=== PATIENT | male | born 1990 | race Caucasian/White ===

== ENCOUNTER 2018-05-07 14:00 | Emergency (ER) | payer OTHER ==
[~2018-05-07] VITALS: Ht 175.3 cm; Wt 102.3 kg
[2018-05-07 15:08] LABS: ALANINE AMINOTRANSFERASE 91 U/L (12-78); ALBUMIN 3.4 G/DL (3.4-5.0); ALBUMIN/GLOBULIN RATIO 0.8 (1.1-1.5); ALKALINE PHOSPHATASE 88 IU/L (46-116); ANION GAP 12 (8-16); ASPARTATE AMINO TRANSFERASE 114 U/L (10-37); BILIRUBIN,TOTAL 1.2 MG/DL (0.1-1.0); BLOOD UREA NITROGEN 10 MG/DL (7-18); BUN/CREATININE RATIO 10.8 (5.4-32.0); CALCIUM 9.5 MG/DL (8.5-10.1); CHLORIDE 95 MMOL/L (99-107); CREATININE 0.93 MG/DL (0.60-1.10); GLUCOSE 120 MG/DL (70-104); POTASSIUM 3.5 MMOL/L (3.5-5.1); SODIUM 134 MMOL/L (135-145); TOTAL CARBON DIOXIDE 27.3 MMOL/L (24-32); TOTAL PROTEIN 7.5 G/DL (6.4-8.2); eGFR > 90 ML/MIN
[2018-05-07 15:32] LABS: BASOPHILS % (AUTO) 0.1 % (0-1); EOSINOPHILS % (AUTO) 0 % (0-6); HEMATOCRIT 42.5 % (42.0-52.0); LYMPHOCYTES # (AUTO) 2.7 X10'3 (1.1-4.8); LYMPHOCYTES % (AUTO) 24.8 % (21-51); MEAN CORPUSCULAR HEMOGLOBIN 33.5 PG (27.0-31.0); MEAN CORPUSCULAR HGB CONC 35.2 g/dL (33.0-36.5); MEAN PLATELET VOLUME 7.5 FL (7.4-10.4); MONOCYTES # (AUTO) 0.9 X10'3 (0-0.9); MONOCYTES % (AUTO) 7.8 % (2-12); NEUTROPHILS # (AUTO) 7.4 X10'3 (1.8-7.7); NEUTROPHILS % (AUTO) 67.3 % (42-75); PLATELET COUNT 138 X10'3 (140-440); RED BLOOD COUNT 4.47 X10'6 (4.70-6.10); RED CELL DISTRIBUTION WIDTH 13.7 % (11.5-14.5)
[2018-05-07 16:34] LABS: ETHANOL < 0.010 GM/DL (0.0-0.010)
[2018-05-07] MEDS ORDERED: LORazepam 1 MG tablet PO ONE (17:20)
[2018-05-07] MEDS ORDERED: HYDR-4383 PO (19:14)
[2018-05-07 19:55] VITALS: BP 121/68
== END 2018-05-07 19:57 | disposition home or self-care (01) ==
LOC: ER 14:01
DX: S42.292A Other displaced fracture of upper end of left humerus, initial encounter for closed fracture (principal); F10.10 Alcohol abuse, uncomplicated; I10 Essential (primary) hypertension; F12.90 Cannabis use, unspecified, uncomplicated; F17.210 Nicotine dependence, cigarettes, uncomplicated; W19.XXXA Unspecified fall, initial encounter; Y93.89 Activity, other specified; Y92.89 Other specified places as the place of occurrence of the external cause; Y99.9 Unspecified external cause status; Y90.9 Presence of alcohol in blood, level not specified
CPT/HCPCS: 36415; 73030; 73200; 80053; 80320; 85025; 93005; 99284

== ENCOUNTER 2018-05-29 05:55 | Day surgery (SDC) | payer MEDICAID ==
[2018-05-28 14:12] LABS: BASOPHILS % (AUTO) 0.3 % (0-1); EOSINOPHILS # (AUTO) 0.1 X10'3 (0-0.9); EOSINOPHILS % (AUTO) 1.3 % (0-6); LYMPHOCYTES # (AUTO) 2.5 X10'3 (1.1-4.8); LYMPHOCYTES % (AUTO) 45.5 % (21-51); MEAN CORPUSCULAR HEMOGLOBIN 32.8 PG (27.0-31.0); MEAN CORPUSCULAR HGB CONC 34.9 g/dL (33.0-36.5); MEAN CORPUSCULAR VOLUME 93.9 FL (78-98); MEAN PLATELET VOLUME 7.7 FL (7.4-10.4); MONOCYTES # (AUTO) 0.4 X10'3 (0-0.9); MONOCYTES % (AUTO) 7.8 % (2-12); NEUTROPHILS # (AUTO) 2.5 X10'3 (1.8-7.7); NEUTROPHILS % (AUTO) 45.1 % (42-75); PRE OP HEMATOCRIT 48.4 % (42.0-52.0); PRE OP HEMOGLOBIN 16.9 g/dL (14.0-17.9); PRE OP PLATELET COUNT 308 X10'3 (140-440); RED BLOOD COUNT 5.16 X10'6 (4.70-6.10); RED CELL DISTRIBUTION WIDTH 13.7 % (11.5-14.5)
[2018-05-28 14:18] LABS: ALBUMIN 3.8 G/DL (3.4-5.0); ALKALINE PHOSPHATASE 97 IU/L (46-116); BLOOD UREA NITROGEN 13 MG/DL (7-18); BUN/CREATININE RATIO 15.1 (5.4-32.0); CALCIUM 10.2 MG/DL (8.5-10.1); CHLORIDE 102 MMOL/L (99-107); CREATININE 0.86 MG/DL (0.60-1.10); PRE OP ALT 68 U/L (30-65); PRE OP ANION GAP 7 (8-16); PRE OP AST 25 U/L (10-37); PRE OP BILIRUB, TOTAL 0.5 MG/DL (0.0-1.0); PRE OP GLUCOSE 107 MG/DL (70-104); PRE OP POTASSIUM 3.8 MMOL/L (3.4-5.1); PRE OP SODIUM 140 MMOL/L (135-145); TOTAL CARBON DIOXIDE 31.3 MMOL/L (24-32); TOTAL PROTEIN 7.6 G/DL (6.4-8.2); eGFR > 90 ML/MIN
[2018-05-29] VITALS (13 sets, daily range): BP systolic 113–136; BP diastolic 61–93
[~2018-05-29] VITALS: Ht 177.8 cm; Wt 104.3 kg
[~2018-05-29 05:55] MED LIST: DOCUMENT DATE & TIME OF BETA-BLOCKER PO ONE; HYDR-4353 PO; METO-384 PO; MV-M1CAP15; [UNRECOGNIZED DRUG - OTHER]; ceFAZolin 2gm in dextrose, iso 100 ML IV ONE; famotidine 20mg tablet PO ONE; ringers solution, lacted 1,000 ML IV SCH
[2018-05-29] MEDS ORDERED: vancomycin 1,000mg inj ONE (06:31)
[2018-05-29] MEDS ORDERED: ketorolac trometh. 30mg/ml inj. ONE ×2 (06:42→11:50)
[2018-05-29] MEDS ORDERED: ROPIVAcaine 0.5% (5mg/ml) 30ml vial ONE ×2 (06:42→08:47)
[2018-05-29] MEDS ORDERED: cloNIDine hcl/PF 100mcg/ml inj ONE (08:47)
[2018-05-29] MEDS ORDERED: fentaNYL/PF 50MCG/1 ML 2ML syringe ONE ×2 (08:52→11:41)
[2018-05-29] MEDS ORDERED: propofol inj 20 ML IV ONE ×2 (08:52→10:50)
[2018-05-29] MEDS ORDERED: MIDAZolam 5mg/5ml vial ONE (08:52)
[2018-05-29] MEDS ORDERED: dexamethasone sod phosphate 4mg/ml inj. ONE (08:53)
[2018-05-29] MEDS ORDERED: ondansetron/PF 4mg/2ml inj ONE (08:53)
[2018-05-29] MEDS ORDERED: LIDOcaine 2% (20mg/ml) 5ml vial ONE (08:53)
[2018-05-29] MEDS ORDERED: ROPIVAcaine 0.2%/PF PAIN PUMP 500 ML IJ SCH (09:18)
[2018-05-29] MEDS ORDERED: ringers solution, lacted 1,000 ML IV SCH (09:19)
[2018-05-29] MEDS ORDERED: morphine 4 MG/ML inj SYRINge IV PRN ×2 (09:20)
[2018-05-29] MEDS ORDERED: ondansetron/PF 4mg/2ml inj IV PRN (09:20)
[2018-05-29] MEDS ORDERED: fentaNYL/PF 50MCG/1 ML 2ML syringe IV PRN ×2 (09:20)
[2018-05-29] MEDS ORDERED: hydrALAZINE 20mg/ml inj. IV PRN (09:20)
[2018-05-29] MEDS ORDERED: labetalol 20mg/4ml (5mg/ml) syringe IV PRN (09:20)
[2018-05-29] MEDS ORDERED: sevoflurane 250ml liquid IH ONE (09:21)
[2018-05-29] MEDS ORDERED: labetalol 20mg/4ml (5mg/ml) syringe IV ONE (10:48)
--- NOTE | 2018-05-29 12:13 | NUR ---
Received from OR via [facility], accompanied by Anesthesiologist DR DECKER and report given by Anesthesiologist. PT DROWSY, LEFT SHOULDER W/DRSG, SHOULDER WRAP, SLING, ICE PACK, INTERSCALENE CATHETER, CDI. FINGERS PWD. Addendum: 05/29/18 at 1251 by Olivia Miller RN Amended: Links added.
[2018-05-29] MEDS ORDERED: HYDROcodone/acetaminophen 10/325mg tab PO PRN (12:15)
--- NOTE | 2018-05-29 14:03 | NUR ---
PT D/C TO HOME VIA PRIVATE VEHICLE W/HIS FATHER, DETAILED DISCHARGE INSTRUCTIONS GONE OVER AND GIVEN TO PT TO TAKE HOME, ON-Q PAIN PUMP INSTRUCTIONS WELL W/DETAILED INFORMATION AND DEMONSTRATION, PT VERBALIZES UNDERSTANDING OF INSTRUCTIONS AND KNOWLEDGE TO CALL MD OFFICE OR 24 HOUR ON-Q PUMP HOTLINE FOR ANY QUESTIONS/CONCERNS. Addendum: 05/29/18 at 1434 by Olivia Miller RN Amended: Links added.
== END 2018-05-29 14:03 | disposition home or self-care (01) ==
LOC: PAS 05:55
PROVIDERS: ATTEND Orthopaedic Surgery
DX: S42.292A Other displaced fracture of upper end of left humerus, initial encounter for closed fracture (principal); I10 Essential (primary) hypertension; F17.210 Nicotine dependence, cigarettes, uncomplicated; F41.8 Other specified anxiety disorders; X58.XXXA Exposure to other specified factors, initial encounter; Y93.89 Activity, other specified; Y92.89 Other specified places as the place of occurrence of the external cause; Y99.8 Other external cause status; Z72.89 Other problems related to lifestyle
CPT/HCPCS: 23615; 36415; 73020; 76000; 80053; 82948; 85025; 85610; 85730; 93005; A6449; C1713; J0690; J0735; J1100; J1885; J2001; J2250; J2405; J2704; J2795; J3010; J3370; J7120; A4565; A7000; J3490; J7030

== ENCOUNTER 2018-06-23 22:01 | Emergency (ER) | payer MEDICAID ==
[~2018-06-23] VITALS: Ht 175.3 cm; Wt 100.0 kg
[~2018-06-23 22:01] MED LIST changes: -DOCUMENT DATE & TIME OF BETA-BLOCKER PO ONE; -ceFAZolin 2gm in dextrose, iso 100 ML IV ONE; -famotidine 20mg tablet PO ONE; -ringers solution, lacted 1,000 ML IV SCH
--- NOTE | 2018-06-23 22:05 | NUR ---
dr gillette at bedside. pt given 6 mg with no changes per ems.
[2018-06-23] MEDS ORDERED: magnesium 2GM in 50ml NS 50 ML IV ONE (22:15)
[2018-06-23] MEDS ORDERED: normal saline 1000ML IV soln IVB ONE (22:15)
--- NOTE | 2018-06-23 22:38 | NUR ---
parents at bedside
[2018-06-23 22:39] LABS: BASOPHILS % (AUTO) 0.2 % (0-1); EOSINOPHILS % (AUTO) 0 % (0-6); HEMATOCRIT 46.6 % (42.0-52.0); HEMOGLOBIN 16.5 g/dl (14.0-17.9); LYMPHOCYTES # (AUTO) 4.1 X10'3 (1.1-4.8); LYMPHOCYTES % (AUTO) 39.6 % (21-51); MEAN CORPUSCULAR HGB CONC 35.3 g/dL (33.0-36.5); MEAN CORPUSCULAR VOLUME 90.7 FL (78-98); MEAN PLATELET VOLUME 7.6 FL (7.4-10.4); MONOCYTES # (AUTO) 0.7 X10'3 (0-0.9); NEUTROPHILS # (AUTO) 5.5 X10'3 (1.8-7.7); NEUTROPHILS % (AUTO) 53.2 % (42-75); PLATELET COUNT 184 X10'3 (140-440); RED BLOOD COUNT 5.14 X10'6 (4.70-6.10); WHITE BLOOD COUNT 10.3 X10'3 (4.5-11.0)
[2018-06-23 22:54] LABS: ALANINE AMINOTRANSFERASE 33 U/L (12-78); ALBUMIN 3.5 G/DL (3.4-5.0); ALBUMIN/GLOBULIN RATIO 0.9 (1.1-1.5); ALKALINE PHOSPHATASE 111 IU/L (46-116); ANION GAP 23 (8-16); ASPARTATE AMINO TRANSFERASE 35 U/L (10-37); BILIRUBIN,TOTAL 0.9 MG/DL (0.1-1.0); BLOOD UREA NITROGEN 8 MG/DL (7-18); BUN/CREATININE RATIO 6.3 (5.4-32.0); CALCIUM 8.9 MG/DL (8.5-10.1); CHLORIDE 87 MMOL/L (99-107); CREATININE 1.27 MG/DL (0.60-1.10); ETHANOL 0.192 GM/DL (0.0-0.010); GLUCOSE 159 MG/DL (70-104); MAGNESIUM 1.2 MG/DL (1.5-2.4); PHOSPHORUS 1.9 MG/DL (2.3-4.5); SODIUM 137 MMOL/L (135-145); TOTAL CARBON DIOXIDE 27.2 MMOL/L (24-32); TOTAL PROTEIN 7.2 G/DL (6.4-8.2); eGFR 68 ML/MIN
[2018-06-23] MEDS ORDERED: metoprolol tartrate 1mg/ml inj IV ONE (22:55)
[2018-06-23 22:58] LABS: POTASSIUM 2.5 MMOL/L (3.5-5.1)
[2018-06-23] MEDS ORDERED: potassium Cl 20 mEq SR tablet PO ONE (23:00)
[2018-06-23] MEDS: potassium 10mEq/100ml NS w/LIDOcaine (10mg/bag) IV SCH (23:37)
[2018-06-24 00:14] LABS: URINE AMPHETAMINE SCREEN NEGATIVE (Neg); URINE BARBITUATE SCREEN NEGATIVE (Neg); URINE BENZODIAZEPINES SCREEN NEGATIVE (Neg); URINE CANNABINOID SCREEN POSITIVE (Neg); URINE COCAINE SCREEN NEGATIVE (Neg); URINE METHADONE SCREEN NEGATIVE (Neg); URINE OPIATE SCREEN NEGATIVE (Neg); URINE PHENCYCLIDINE SCREEN NEGATIVE (Neg)
[2018-06-24] MEDS: potassium 10mEq/100ml NS w/LIDOcaine (10mg/bag) IV SCH (00:44)
--- NOTE | 2018-06-24 01:02 | NUR ---
DR. HERBERT UPDATED OF PT'S CP OVER THE PAST HOUR. TO ORDER ADTL MEDS AND CHRISTAL STAT NOW. ANTICIPATES ONCE HR BACK TO NORMAL , TO DC PATIENT. PATIENT UPDATED.
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
[2018-06-24] MEDS ORDERED: HYDROcodone/acetaminophen 10/325mg tab PO ONE (01:50)
[2018-06-24] MEDS ORDERED: metoprolol succinate 25mg (24-HOUR) SR. Tablet PO SCH ×3 (02:05→08:00)
--- NOTE | 2018-06-24 02:11 | NUR ---
given norco and metoprolol xl. up to br with slow steady gait.
[2018-06-24 02:16] LABS: D-DIMER 0.55 MG/L FEU (0-0.50)
--- NOTE | 2018-06-24 02:48 | NUR ---
verbal received by dr. gillette for tums , per pt request
[2018-06-24] MEDS ORDERED: calcium carbonate 500mg chew tablet PO PRN (02:50)
--- NOTE | 2018-06-24 03:20 | NUR ---
Pt updated that MD has ordered a CTA. Pt asking if it is really necessary and reports that he is feeling better, hr 106. dr. gilletet updated and reports he will be comfortable discharging the pt if he does not want the work up. pt reports wanting to be discharged.
[2018-06-24] MEDS ORDERED: iohexol 350MG/ML 100ml bottle IV ONE (03:24)
[2018-06-24 04:07] VITALS: BP 144/78
[2018-06-24] MEDS ORDERED: CHLO1CAP PO (19:54)
[2018-06-24] MEDS ORDERED: POTA20TA10 PO (19:54)
== END 2018-06-24 10:41 | disposition left against medical advice (07) ==
LOC: ER 22:01
DX: I47.1 Supraventricular tachycardia (principal); I10 Essential (primary) hypertension; F12.90 Cannabis use, unspecified, uncomplicated; Z98.890 Other specified postprocedural states; Z79.899 Other long term (current) drug therapy
CPT/HCPCS: 36415; 71045; 80053; 80305; 80320; 83735; 84100; 84443; 84484; 85025; 85379; 96365; 96375; 99284; J3475; J3480; J7030; Q9967; 93005; J3490

== ENCOUNTER 2018-06-24 15:04 | Emergency (ER) | payer MEDICAID ==
[~2018-06-24] VITALS: Ht 175.3 cm; Wt 101.0 kg
--- NOTE | 2018-06-24 15:34 | NUR ---
called pt to do ekg, pt not in lobby
[2018-06-24] MEDS ORDERED: normal saline 1000ml 1,000 ML IV ONE (17:15)
[2018-06-24] MEDS ORDERED: LORazepam 2 mg/ml vial IV ONE (17:15)
[2018-06-24] MEDS ORDERED: ondansetron/PF 4mg/2ml inj IV ONE (17:15)
[2018-06-24 17:38] LABS: BASOPHILS % (AUTO) 0.1 % (0-1); EOSINOPHILS % (AUTO) 0 % (0-6); HEMATOCRIT 44.1 % (42.0-52.0); HEMOGLOBIN 15.8 g/dl (14.0-17.9); LYMPHOCYTES # (AUTO) 1.1 X10'3 (1.1-4.8); LYMPHOCYTES % (AUTO) 15.6 % (21-51); MEAN CORPUSCULAR HEMOGLOBIN 32.1 PG (27.0-31.0); MEAN CORPUSCULAR HGB CONC 35.9 g/dL (33.0-36.5); MEAN CORPUSCULAR VOLUME 89.6 FL (78-98); MEAN PLATELET VOLUME 7.6 FL (7.4-10.4); MONOCYTES # (AUTO) 0.5 X10'3 (0-0.9); MONOCYTES % (AUTO) 7.1 % (2-12); NEUTROPHILS # (AUTO) 5.6 X10'3 (1.8-7.7); NEUTROPHILS % (AUTO) 77.2 % (42-75); PLATELET COUNT 128 X10'3 (140-440); RED BLOOD COUNT 4.93 X10'6 (4.70-6.10); RED CELL DISTRIBUTION WIDTH 13.2 % (11.5-14.5); WHITE BLOOD COUNT 7.3 X10'3 (4.5-11.0)
[2018-06-24] MEDS ORDERED: mag hydrox/Alum hydrox/simeth 30ml oral suspension PO ONE (17:40)
[2018-06-24] MEDS ORDERED: LIDOcaine Viscous 15ml cup MM PRN (17:40)
[2018-06-24 17:47] LABS: ALANINE AMINOTRANSFERASE 38 U/L (12-78); ALBUMIN 3.4 G/DL (3.4-5.0); ALKALINE PHOSPHATASE 102 IU/L (46-116); ANION GAP 11 (8-16); ASPARTATE AMINO TRANSFERASE 46 U/L (10-37); BILIRUBIN,TOTAL 1.3 MG/DL (0.1-1.0); BLOOD UREA NITROGEN 6 MG/DL (7-18); BUN/CREATININE RATIO 7.7 (5.4-32.0); CALCIUM 9.9 MG/DL (8.5-10.1); CHLORIDE 88 MMOL/L (99-107); CREATININE 0.78 MG/DL (0.60-1.10); GLUCOSE 138 MG/DL (70-104); SODIUM 130 MMOL/L (135-145); TOTAL CARBON DIOXIDE 31.5 MMOL/L (24-32); TOTAL PROTEIN 6.9 G/DL (6.4-8.2); eGFR > 90 ML/MIN
[2018-06-24 17:50] LABS: POTASSIUM 2.4 MMOL/L (3.5-5.1)
[2018-06-24] MEDS ORDERED: potassium Cl 20 mEq SR tablet PO ONE (17:52)
[2018-06-24] MEDS: potassium 10mEq/100ml NS w/LIDOcaine (10mg/bag) IV SCH ×2 (18:11→19:37)
[2018-06-24 19:42] VITALS: BP 119/47
[2018-06-24] MEDS ORDERED: CHLO1CAP PO (19:54)
[2018-06-24] MEDS ORDERED: POTA20TA10 PO (19:54)
[2018-06-24] MEDS ORDERED: chlordiazePOXIDE 25mg capsule PO ONE (19:55)
== END 2018-06-24 21:14 | disposition home or self-care (01) ==
LOC: ER 15:04
DX: F10.10 Alcohol abuse, uncomplicated (principal); E87.6 Hypokalemia; R00.0 Tachycardia, unspecified; I10 Essential (primary) hypertension; F12.90 Cannabis use, unspecified, uncomplicated; Z98.890 Other specified postprocedural states; Z79.899 Other long term (current) drug therapy; Y90.9 Presence of alcohol in blood, level not specified
CPT/HCPCS: 36415; 80053; 85025; 93005; 96365; 96375; 99284; J2060; J2405; J3480; J7030

== ENCOUNTER 2019-01-26 22:00 | Emergency (ER) | payer MEDICAID ==
[~2019-01-26] VITALS: Ht 180.3 cm; Wt 100.0 kg
[~2019-01-26 22:00] MED LIST changes: +CHLO1CAP PO; +POTA20TA10 PO
[2019-01-26] MEDS ORDERED: NALT50TA PO (22:13)
[2019-01-26] MEDS ORDERED: CARB300C9 PO (22:13)
--- NOTE | 2019-01-26 22:21 | NUR ---
cxr being done.
[2019-01-26] MEDS ORDERED: normal saline 1000ML IV soln IVB ONE (22:25)
[2019-01-26] MEDS ORDERED: phenobarbital inj 260 MG in normal saline 100ml IV soln 99 ML IV ONE ×2 (22:25→22:35)
[2019-01-26] MEDS ORDERED: magnesium oxide 400mg tablet PO ONE (22:25)
[2019-01-26] MEDS ORDERED: thiamine 100mg tablet PO ONE (22:25)
[2019-01-26 22:31] LABS: BASOPHILS % (AUTO) 0.3 % (0-1); EOSINOPHILS % (AUTO) 0 % (0-6); HEMATOCRIT 46.8 % (42.0-52.0); HEMOGLOBIN 16.7 g/dl (14.0-17.9); LYMPHOCYTES # (AUTO) 4.5 X10'3 (1.1-4.8); LYMPHOCYTES % (AUTO) 38.9 % (21-51); MEAN CORPUSCULAR HEMOGLOBIN 32.6 PG (27.0-31.0); MEAN CORPUSCULAR HGB CONC 35.7 g/dL (33.0-36.5); MEAN CORPUSCULAR VOLUME 91.4 FL (78-98); MEAN PLATELET VOLUME 7.1 FL (7.4-10.4); MONOCYTES # (AUTO) 0.5 X10'3 (0-0.9); MONOCYTES % (AUTO) 4.4 % (2-12); NEUTROPHILS # (AUTO) 6.5 X10'3 (1.8-7.7); NEUTROPHILS % (AUTO) 56.4 % (42-75); PLATELET COUNT 159 X10'3 (140-440); RED BLOOD COUNT 5.11 X10'6 (4.70-6.10); WHITE BLOOD COUNT 11.5 X10'3 (4.5-11.0)
[2019-01-26] MEDS ORDERED: ondansetron/PF 4mg/2ml inj IV ONE (22:35)
[2019-01-26 22:49] LABS: D-DIMER < 0.19 MG/L FEU (0-0.50)
[2019-01-26 22:56] LABS: ALANINE AMINOTRANSFERASE 32 U/L (12-78); ALBUMIN 4.1 G/DL (3.4-5.0); ALBUMIN/GLOBULIN RATIO 1.2 (1.1-1.5); ALKALINE PHOSPHATASE 105 IU/L (46-116); ANION GAP 17 (8-16); ASPARTATE AMINO TRANSFERASE 51 U/L (10-37); BLOOD UREA NITROGEN 8 MG/DL (7-18); BUN/CREATININE RATIO 8.6 (5.4-32.0); CALCIUM 8.9 MG/DL (8.5-10.1); CHLORIDE 94 MMOL/L (99-107); CREATININE 0.93 MG/DL (0.60-1.10); ETHANOL 0.027 GM/DL (0.0-0.010); GLUCOSE 122 MG/DL (70-104); SODIUM 135 MMOL/L (135-145); TOTAL CARBON DIOXIDE 24.2 MMOL/L (24-32); TOTAL PROTEIN 7.4 G/DL (6.4-8.2); eGFR > 90 ML/MIN
[2019-01-26 22:58] LABS: MAGNESIUM 0.9 MG/DL (1.5-2.4); POTASSIUM 2.9 MMOL/L (3.5-5.1)
[2019-01-26] MEDS ORDERED: potassium Cl 20 mEq SR tablet PO ONE (23:00)
[2019-01-26] MEDS: magnesium 2GM in 50ml NS 50 ML IV SCH ×2 (23:19→23:46)
[2019-01-26 23:22] LABS: URINE AMPHETAMINE SCREEN NEGATIVE (Neg); URINE BARBITUATE SCREEN NEGATIVE (Neg); URINE BENZODIAZEPINES SCREEN NEGATIVE (Neg); URINE CANNABINOID SCREEN POSITIVE (Neg); URINE COCAINE SCREEN NEGATIVE (Neg); URINE METHADONE SCREEN NEGATIVE (Neg); URINE OPIATE SCREEN NEGATIVE (Neg); URINE PHENCYCLIDINE SCREEN NEGATIVE (Neg)
[2019-01-27] MEDS ORDERED: phenobarbital inj 130 MG in normal saline 100ml IV soln 99 ML IV ONE ×2 (00:10→00:55)
--- NOTE | 2019-01-27 01:33 | NUR ---
PT UP TO THE BR TO VOID. HE SAID THAT HE IS FEELING A LITTLE BIT BETTER. GAVE HIM SOME ICE CHIPS. BACK TO BED WITH SEIZURE PADS/BLANKET. BACK ON THE MONITOR. HIS SISTER IS STILL AT BS.
[2019-01-27 01:45] VITALS: BP 162/96
[2019-01-27] MEDS ORDERED: POTA20TA19 PO (02:04)
== END 2019-01-27 02:21 | disposition home or self-care (01) ==
LOC: ER 22:01
DX: F10.229 Alcohol dependence with intoxication, unspecified (principal); E87.6 Hypokalemia; E83.42 Hypomagnesemia; I10 Essential (primary) hypertension; F12.90 Cannabis use, unspecified, uncomplicated; Z79.899 Other long term (current) drug therapy; Y90.0 Blood alcohol level of less than 20 mg/100 ml
CPT/HCPCS: 36415; 71045; 80053; 80305; 80320; 83735; 84439; 84443; 84484; 85025; 85379; 93005; 96365; 96366; 96367; 96375; 99284; J2405; J2560; J3475; J7030

== ENCOUNTER 2019-02-12 12:15 | Day surgery (SDC) | payer MEDICAID ==
[2019-02-11 10:05] LABS: BASOPHILS % (AUTO) 0.6 % (0-1); EOSINOPHILS % (AUTO) 0.6 % (0-6); LYMPHOCYTES # (AUTO) 3.4 X10'3 (1.1-4.8); MEAN CORPUSCULAR HEMOGLOBIN 32.1 PG (27.0-31.0); MEAN CORPUSCULAR VOLUME 94.5 FL (78-98); MONOCYTES # (AUTO) 0.4 X10'3 (0-0.9); NEUTROPHILS # (AUTO) 2.9 X10'3 (1.8-7.7); NEUTROPHILS % (AUTO) 42.8 % (42-75); PRE OP HEMATOCRIT 49.3 % (42.0-52.0); PRE OP HEMOGLOBIN 16.8 g/dL (14.0-17.9); PRE OP PLATELET COUNT 394 X10'3 (140-440); RED BLOOD COUNT 5.22 X10'6 (4.70-6.10); RED CELL DISTRIBUTION WIDTH 13.2 % (11.5-14.5)
[2019-02-11 10:18] LABS: PRE OP PROTIME 10.5 SECONDS (9.0-12.0)
[2019-02-11 10:31] LABS: ALBUMIN 3.8 G/DL (3.4-5.0); ALBUMIN/GLOBULIN RATIO 1.1 (1.1-1.5); ALKALINE PHOSPHATASE 89 IU/L (46-116); BLOOD UREA NITROGEN 17 MG/DL (7-18); BUN/CREATININE RATIO 15.9 (5.4-32.0); CALCIUM 9.3 MG/DL (8.5-10.1); CHLORIDE 103 MMOL/L (99-107); CREATININE 1.07 MG/DL (0.60-1.10); PRE OP ALT 67 U/L (30-65); PRE OP ANION GAP 4 (8-16); PRE OP AST 42 U/L (10-37); PRE OP BILIRUB, TOTAL 0.2 MG/DL (0.0-1.0); PRE OP GLUCOSE 94 MG/DL (70-104); PRE OP SODIUM 138 MMOL/L (135-145); TOTAL CARBON DIOXIDE 30.6 MMOL/L (24-32); TOTAL PROTEIN 7.3 G/DL (6.4-8.2); eGFR 82 ML/MIN
[2019-02-11 10:40] LABS: PRE OP POTASSIUM 4.4 MMOL/L (3.4-5.1)
[2019-02-12] VITALS (8 sets, daily range): BP systolic 128–152; BP diastolic 76–92
[~2019-02-12] VITALS: Ht 177.8 cm; Wt 104.2 kg
[~2019-02-12 12:15] MED LIST changes: +CARB200T40 PO; -CHLO1CAP PO; +DOCUMENT DATE & TIME OF BETA-BLOCKER PO ONE; -HYDR-4353 PO; -MV-M1CAP15; +NALT50TA PO; -POTA20TA10 PO; -[UNRECOGNIZED DRUG - OTHER]; +albuterol 2.5 MG/3 ML nebule NEB ONE; +cefazolin/dext.iso 2gm/100ml 100 ML IV ONE; +famotidine 20mg tablet PO ONE; +ringers solution, lacted 1,000 ML IV SCH; +vancomycin inj 1,500 MG in normal saline 300ml IV soln IV ONE
[2019-02-12] MEDS ORDERED: ringers solution, lacted 1,000 ML IV SCH ×2 (13:49→15:59)
[2019-02-12] MEDS ORDERED: proCHLORperazine 10 MG/2 ml inj IV PRN ×2 (13:50→16:00)
[2019-02-12] MEDS ORDERED: morphine 4 MG/ML inj SYRINge IV PRN ×4 (13:50→16:00)
[2019-02-12] MEDS ORDERED: meperidine/PF 25mg/ml syringe IV PRN ×6 (13:50→16:00)
[2019-02-12] MEDS ORDERED: ondansetron/PF 4mg/2ml inj IV PRN ×2 (13:50→16:00)
[2019-02-12] MEDS ORDERED: sevoflurane 250ml liquid IH ONE (14:30)
[2019-02-12] MEDS ORDERED: fentaNYL/PF 50MCG/1 ML 2ML syringe ONE (14:43)
[2019-02-12] MEDS ORDERED: MIDAZolam 5mg/5ml vial ONE (14:44)
[2019-02-12] MEDS ORDERED: propofol inj 20 ML IV ONE (14:48)
[2019-02-12] MEDS ORDERED: ROPIVAcaine 0.5% (5mg/ml) 30ml vial ONE (14:48)
[2019-02-12] MEDS ORDERED: BUPIVAcaine/PF 2.5mg/ml (0.25%) 10ml vial ONE ×2 (15:56)
[2019-02-12] MEDS ORDERED: BUPIVAcaine/PF 2.5mg/ml (0.25%) 10ml vial IJ ONE (15:58)
--- NOTE | 2019-02-12 16:36 | NUR ---
Received from OR via , accompanied by Anesthesiologist DR HOANG and report given by Anesthesiolgist. AWAKENS TO VOICE. VITALS STABLE. FRESSING HAS SM RED SPOT AT THE CENTER. MURPHY PAIN. LUE IN A SIMPLE SLING.
[2019-02-12] MEDS ORDERED: HYDROcodone/acetaminophen 10/325mg tab PO PRN (16:50)
--- NOTE | 2019-02-12 17:36 | NUR ---
AWAKE AND ORIENTED. VITALS STABLE. DRESSING WITH SM DRAINAGE NOTED. MURHPY PAIN. HOME WITH HIS DAD AT THIS TIME.
== END 2019-02-12 17:36 | disposition home or self-care (01) ==
LOC: PAS 12:15 → EDSTATUS 15:15 → PAS 17:36
PROVIDERS: ATTEND Orthopaedic Surgery
DX: T84.84XA Pain due to internal orthopedic prosthetic devices, implants and grafts, initial encounter (principal); M75.42 Impingement syndrome of left shoulder; M75.52 Bursitis of left shoulder; M19.112 Post-traumatic osteoarthritis, left shoulder; I10 Essential (primary) hypertension; F17.210 Nicotine dependence, cigarettes, uncomplicated; Z72.89 Other problems related to lifestyle; E66.9 Obesity, unspecified; Z68.42 Body mass index [BMI] 45.0-49.9, adult; G89.18 Other acute postprocedural pain; F41.9 Anxiety disorder, unspecified; F32.9 Major depressive disorder, single episode, unspecified; K21.9 Gastro-esophageal reflux disease without esophagitis; Z79.01 Long term (current) use of anticoagulants; Z79.899 Other long term (current) drug therapy; Z98.890 Other specified postprocedural states; Y83.8 Other surgical procedures as the cause of abnormal reaction of the patient, or of later complication, without mention of misadventure at the time of the procedure; Y92.89 Other specified places as the place of occurrence of the external cause
CPT/HCPCS: 29819; 29823; 36415; 64415; 80053; 82948; 85025; 85610; 85730; J2250; J2704; J3010; J3370; J3490; J7120; A4565; A4618; A6449; A7000; J2795

== ENCOUNTER 2019-03-23 12:29 | Inpatient (IN) | payer MEDICAID ==
[~2019-03-23] VITALS: Ht 177.8 cm; Wt 104.5 kg
[~2019-03-23 12:29] MED LIST changes: -DOCUMENT DATE & TIME OF BETA-BLOCKER PO ONE; -albuterol 2.5 MG/3 ML nebule NEB ONE; -cefazolin/dext.iso 2gm/100ml 100 ML IV ONE; -famotidine 20mg tablet PO ONE; -ringers solution, lacted 1,000 ML IV SCH; -vancomycin inj 1,500 MG in normal saline 300ml IV soln IV ONE
[2019-03-23] MEDS ORDERED: LORazepam 1 MG tablet PO ONE (15:25)
[2019-03-23] MEDS ORDERED: normal saline 1000ML IV soln IVB ONE (15:25)
[2019-03-23] MEDS ORDERED: ondansetron/PF 4mg/2ml inj IV ONE ×2 (15:25→20:00)
[2019-03-23 16:05] LABS: MEAN CORPUSCULAR HEMOGLOBIN 28.9 PG (27.0-31.0); WHITE BLOOD COUNT 4.6 X10'3 (4.5-11.0)
[2019-03-23 16:07] LABS: HEMATOCRIT 41.7 % (42.0-52.0); MEAN CORPUSCULAR HGB CONC 33.5 g/dL (33.0-36.5); MEAN CORPUSCULAR VOLUME 86.2 FL (78-98); MEAN PLATELET VOLUME 8.3 FL (7.4-10.4); PLATELET COUNT 63 X10'3 (140-440); RED BLOOD COUNT 4.84 X10'6 (4.70-6.10); RED CELL DISTRIBUTION WIDTH 18.5 % (11.5-14.5)
[2019-03-23 16:11] LABS: PARTIAL THROMBOPLASTIN TIME 34 SECONDS (22-32)
[2019-03-23 16:14] LABS: ALANINE AMINOTRANSFERASE 125 U/L (12-78); ALKALINE PHOSPHATASE 583 IU/L (46-116); ANION GAP 13 (8-16); BILIRUBIN,TOTAL 14.4 MG/DL (0.1-1.0); BLOOD UREA NITROGEN 6 MG/DL (7-18); BUN/CREATININE RATIO 6.1 (5.4-32.0); CALCIUM 8.2 MG/DL (8.5-10.1); CHLORIDE 91 MMOL/L (99-107); CREATININE 0.98 MG/DL (0.60-1.10); ETHANOL 0.086 GM/DL (0.0-0.010); LIPASE 290 U/L (73-393); SODIUM 132 MMOL/L (135-145); eGFR 90 ML/MIN
[2019-03-23 16:37] LABS: ANISOCYTOSIS 2+; PLATELET ESTIMATE DECREASED; TOTAL CELLS COUNTED 100
[2019-03-23 16:45] LABS: CLARITY,URINE CLEAR (Clear); COLOR,URINE AMBER (Yellow); GLUCOSE, URINE 100 mg/dl (Neg); KETONES,URINE NEGATIVE (Neg); LEUKOCYTE ESTERASE ,URINE NEGATIVE (Neg); NITRITES, URINE NEGATIVE (Neg); OCCULT BLOOD,URINE NEGATIVE (Neg); PROTEIN,URINE TRACE mg/dl (Neg)
[2019-03-23 16:49] LABS: UA COLLECTION TYPE CLN CATCH MIDSTREAM
[2019-03-23 16:51] LABS: RBC,URINE NONE SEEN /HPF (0-2)
[2019-03-23 16:52] LABS: BACTERIA,URINE FEW /HPF (Neg); FINE GRANULAR CAST 0-3 /LPF (NEGATIVE); SQUAMOUS EPITHELIAL CELL,UR FEW /LPF (FEW)
[2019-03-23 16:57] LABS: ASPARTATE AMINO TRANSFERASE 368 U/L (10-37)
[2019-03-23 16:59] LABS: ALBUMIN/GLOBULIN RATIO 0.6 (1.1-1.5); TOTAL PROTEIN 5.2 G/DL (6.4-8.2)
[2019-03-23 17:00] LABS: GLUCOSE 167 MG/DL (70-104); POTASSIUM 3.5 MMOL/L (3.5-5.1)
[2019-03-23] MEDS ORDERED: thiamine 100mg/ml 2ml inj. IV ONE ×2 (17:25→20:05)
[2019-03-23] MEDS ORDERED: thiamine inj. 100 MG in normal saline 100ml IV soln 100 ML IV ONE (17:45)
[2019-03-23] MEDS ORDERED: CARB200T PO (19:47)
[2019-03-23] MEDS ORDERED: morphine 2 MG/ML inj. syringe IV PRN ×2 (20:05)
[2019-03-23] MEDS ORDERED: acetaminophen 325mg tablet PO PRN ×2 (20:05)
[2019-03-23] MEDS ORDERED: cloNIDine 0.1 mg tablet PO PRN (20:05)
[2019-03-23] MEDS ORDERED: dextrose 50%-water 50ml dispensing syringe IV PRN (20:05)
[2019-03-23] MEDS ORDERED: magnesium hydroxide 30ml (MOM) UD suspension PO PRN (20:05)
[2019-03-23] MEDS ORDERED: mag hydrox/Alum hydrox/simeth 30ml oral suspension PO PRN ×2 (20:05)
[2019-03-23] MEDS ORDERED: HYDROcodone/acetaminophen 5mg/325mg tablet PO PRN (20:05)
[2019-03-23] MEDS ORDERED: dicyclomine 10 MG capsule PO PRN (20:05)
[2019-03-23] MEDS ORDERED: haloperidol lactate 5mg/ml inj IM PRN (20:05)
[2019-03-23 20:33] LABS: MAGNESIUM 1.2 MG/DL (1.5-2.4)
[2019-03-23] MEDS: LORazepam 2 mg/ml vial IV PRN ×2 (20:33→22:43)
[2019-03-23 20:46] LABS: PHOSPHORUS 2.4 MG/DL (2.3-4.5)
[2019-03-24] VITALS (8 sets, daily range): BP systolic 122–148; BP diastolic 86–103
--- NOTE | 2019-03-24 00:13 | NUR ---
Dr. Graves notified of the results of the orthostatic vital signs. No new orders at this time.
[2019-03-24] MEDS: LORazepam 2 mg/ml vial IV PRN ×6 (02:30→21:08)
--- NOTE | 2019-03-24 02:45 | NUR ---
Patient in room PCU 3018. I have received report from Silvana HINES and had the opportunity to ask questions and assume patient care.
--- NOTE | 2019-03-24 06:10 | NUR ---
Patient in room U 3018B. I have received report from Amelia HINES and had the opportunity to ask questions and assume patient care. Patient laying in bed, sleeping.
--- NOTE | 2019-03-24 06:15 | NUR ---
Problems reprioritized. Patient report given, questions answered & plan of care reviewed with Joanne HINES.
[2019-03-24 06:21] LABS: RED BLOOD COUNT 4.19 X10'6 (4.70-6.10); WHITE BLOOD COUNT 4.5 X10'3 (4.5-11.0)
[2019-03-24 06:24] LABS: ALANINE AMINOTRANSFERASE 102 U/L (12-78); ALBUMIN 1.7 G/DL (3.4-5.0); ALKALINE PHOSPHATASE 486 IU/L (46-116); ANION GAP 6 (8-16); BILIRUBIN,TOTAL 13.3 MG/DL (0.1-1.0); BLOOD UREA NITROGEN 5 MG/DL (7-18); BUN/CREATININE RATIO 4.6 (5.4-32.0); CALCIUM 7.7 MG/DL (8.5-10.1); CHLORIDE 96 MMOL/L (99-107); CREATININE 1.09 MG/DL (0.60-1.10); GLUCOSE 153 MG/DL (70-104); SODIUM 131 MMOL/L (135-145); TOTAL CARBON DIOXIDE 28.7 MMOL/L (24-32); eGFR 80 ML/MIN
[2019-03-24 06:25] LABS: HEMATOCRIT 35.9 % (42.0-52.0); HEMOGLOBIN 12.2 g/dl (14.0-17.9); MEAN CORPUSCULAR HEMOGLOBIN 29.1 PG (27.0-31.0); MEAN CORPUSCULAR HGB CONC 33.9 g/dL (33.0-36.5); MEAN CORPUSCULAR VOLUME 85.8 FL (78-98); MEAN PLATELET VOLUME 8.2 FL (7.4-10.4); RED CELL DISTRIBUTION WIDTH 18.1 % (11.5-14.5)
[2019-03-24 06:33] LABS: ALBUMIN/GLOBULIN RATIO 0.6 (1.1-1.5); ASPARTATE AMINO TRANSFERASE 343 U/L (10-37); TOTAL PROTEIN 4.6 G/DL (6.4-8.2)
--- NOTE | 2019-03-24 06:58 | NUR ---
Critical lab received on patient, paged to hospitalist with result. PAGER ID: [phone] MESSAGE: Joanne huddleston [phone]. Erica Spivey 3018B. Critical lab K 3.0. No replacement protocol ordered. Can I put in replacement orders? Thanks
--- NOTE | 2019-03-24 07:10 | NUR ---
Patient in room PCU 3018B. I have received report from Amelai HINES and had the opportunity to ask questions and assume patient care. Patient is asleep, seizure precautions in place. Will continue to monitor
[2019-03-24 07:36] LABS: PLATELET COUNT 50 X10'3 (140-440)
--- NOTE | 2019-03-24 08:00 | NUR ---
Critical lab results paged to Dr. Angeles, hospitalist. PAGER ID: [phone] MESSAGE: Joanne huddleston [phone]. Erica Spivey 3018B. Critical lab results: Platelets 50 and K 3.0. No replacement protocol ordered, can I put in replacement? Thanks!
[2019-03-24] MEDS ORDERED: magnesium 2GM in 50ml NS 50 ML IV PRN (08:05)
[2019-03-24] MEDS ORDERED: magnesium 4gm in 100ml NS 100 ML IV PRN (08:05)
[2019-03-24] MEDS ORDERED: potassium Cl 20 mEq SR tablet PO PRN ×2 (08:05)
[2019-03-24] MEDS ORDERED: magnesium Cl slow-release 64mg tablet PO PRN (08:05)
[2019-03-24 08:19] LABS: TOTAL CELLS COUNTED 100
[2019-03-24 08:20] LABS: ANISOCYTOSIS 2+; PLATELET ESTIMATE DECREASED
[2019-03-24] MEDS: ondansetron/PF 4mg/2ml inj IV PRN ×2 (12:44→21:08)
--- NOTE | 2019-03-24 18:32 | NUR ---
Problems reprioritized. Patient report given, questions answered & plan of care reviewed with Debi HINES. Patient laying in bed, eyes closed.
--- NOTE | 2019-03-24 18:37 | NUR ---
Patient in room PCU 3023. I have received report from Joanne HINES and had the opportunity to ask questions and assume patient care.
[2019-03-24] MEDS: propranolol 10mg tablet PO SCH (21:42)
[2019-03-24] MEDS: predniSONE 20 mg tablet PO SCH (21:42)
[2019-03-25] VITALS (8 sets, daily range): BP systolic 117–142; BP diastolic 73–97
[2019-03-25] MEDS: potassium CL 10mEq/100ml bag 100 ML IV PRN ×3 (01:44→04:47)
[2019-03-25 05:43] LABS: HEMOGLOBIN 12.1 g/dl (14.0-17.9)
[2019-03-25 05:47] LABS: HEMATOCRIT 35.8 % (42.0-52.0); MEAN CORPUSCULAR HEMOGLOBIN 29.1 PG (27.0-31.0); MEAN CORPUSCULAR HGB CONC 33.9 g/dL (33.0-36.5); MEAN CORPUSCULAR VOLUME 85.9 FL (78-98); MEAN PLATELET VOLUME 8.5 FL (7.4-10.4); PLATELET COUNT 76 X10'3 (140-440); RED BLOOD COUNT 4.16 X10'6 (4.70-6.10); RED CELL DISTRIBUTION WIDTH 18.4 % (11.5-14.5)
[2019-03-25 05:58] LABS: ALANINE AMINOTRANSFERASE 98 U/L (12-78); ALBUMIN 1.8 G/DL (3.4-5.0); ALKALINE PHOSPHATASE 511 IU/L (46-116); ANION GAP 8 (8-16); BILIRUBIN,TOTAL 16.8 MG/DL (0.1-1.0); BLOOD UREA NITROGEN 2 MG/DL (7-18); BUN/CREATININE RATIO 2.4 (5.4-32.0); CALCIUM 7.9 MG/DL (8.5-10.1); CHLORIDE 99 MMOL/L (99-107); CREATININE 0.85 MG/DL (0.60-1.10); SODIUM 135 MMOL/L (135-145); TOTAL CARBON DIOXIDE 27.8 MMOL/L (24-32); eGFR > 90 ML/MIN
[2019-03-25 06:05] LABS: ALBUMIN/GLOBULIN RATIO 0.6 (1.1-1.5); ASPARTATE AMINO TRANSFERASE 280 U/L (10-37); GLUCOSE 142 MG/DL (70-104); POTASSIUM 3.6 MMOL/L (3.5-5.1)
--- NOTE | 2019-03-25 06:44 | NUR ---
Problems reprioritized. Patient report given, questions answered & plan of care reviewed with Sue HNIES.
[2019-03-25] MEDS: predniSONE 20 mg tablet PO SCH (08:05)
[2019-03-25] MEDS: pantoprazole 40mg Tablet.DR PO SCH (08:05)
[2019-03-25] MEDS: propranolol 10mg tablet PO SCH ×3 (08:06→20:04)
[2019-03-25] MEDS: lactulose 20gm/30ml cup PO SCH ×2 (08:06→20:03)
[2019-03-25 08:33] LABS: BANDS% (MANUAL) 1 % (0-10); LYMPHOCYTES % (MANUAL) 15 % (21-51); MONOCYTES % (MANUAL) 1 % (2-12); NEUTROPHILS % (MANUAL) 83 % (42-75); TOTAL CELLS COUNTED 100
[2019-03-25 08:34] LABS: ANISOCYTOSIS 2+; PLATELET ESTIMATE DECREASED
[2019-03-25 08:35] LABS: HYPOCHROMASIA 1+; STOMATOCYTES 2+
[2019-03-25 08:37] LABS: POLYCHROMASIA FEW; TARGET CELLS 1+
[2019-03-25] MEDS: LORazepam 2 mg/ml vial IV PRN ×2 (12:38→18:47)
--- NOTE | 2019-03-25 18:03 | NUR ---
Problems reprioritized. Patient report given, questions answered & plan of care reviewed with Amy HINES.
--- NOTE | 2019-03-25 18:30 | NUR ---
Patient in room PCU 3023. I have received report from Sue HINES and had the opportunity to ask questions and assume patient care.
--- NOTE | 2019-03-25 18:50 | NUR ---
ativan administered, pt left in wheelchair for MRCP
--- NOTE | 2019-03-25 20:03 | NUR ---
pt returned to PCU unit from [facility], pt settled back into bed, medications administered, will continue to monitor pt and lab values
[2019-03-25] MEDS: carBAMazepine 100mg chewable tablet PO SCH (20:04)
[2019-03-26 02:00] VITALS: BP 134/87
[2019-03-26 06:00] VITALS: BP 135/89
--- NOTE | 2019-03-26 06:04 | NUR ---
Patient in room PCU 3023. I have received report from Amy HINES and had the opportunity to ask questions and assume patient care.
[2019-03-26 06:10] LABS: HEMOGLOBIN 12.5 g/dl (14.0-17.9)
--- NOTE | 2019-03-26 06:11 | NUR ---
Problems reprioritized. Patient report given, questions answered & plan of care reviewed with Sue IHNES.
[2019-03-26 06:14] LABS: HEMATOCRIT 36.6 % (42.0-52.0); MEAN CORPUSCULAR HEMOGLOBIN 29.1 PG (27.0-31.0); MEAN CORPUSCULAR VOLUME 85.5 FL (78-98); MEAN PLATELET VOLUME 8.8 FL (7.4-10.4); PLATELET COUNT 116 X10'3 (140-440); RED BLOOD COUNT 4.28 X10'6 (4.70-6.10); RED CELL DISTRIBUTION WIDTH 18.6 % (11.5-14.5)
[2019-03-26 06:28] LABS: ALANINE AMINOTRANSFERASE 83 U/L (12-78); ALBUMIN 1.8 G/DL (3.4-5.0); ALKALINE PHOSPHATASE 476 IU/L (46-116); ANION GAP 5 (8-16); BILIRUBIN,TOTAL 17.2 MG/DL (0.1-1.0); BLOOD UREA NITROGEN 4 MG/DL (7-18); CALCIUM 8.6 MG/DL (8.5-10.1); CHLORIDE 101 MMOL/L (99-107); SODIUM 137 MMOL/L (135-145); TOTAL CARBON DIOXIDE 31.4 MMOL/L (24-32)
[2019-03-26 06:36] LABS: ALBUMIN/GLOBULIN RATIO 0.6 (1.1-1.5); BUN/CREATININE RATIO 4.2 (5.4-32.0); CREATININE 0.96 MG/DL (0.60-1.10); GLUCOSE 102 MG/DL (70-104); POTASSIUM 3.4 MMOL/L (3.5-5.1); eGFR > 90 ML/MIN
[2019-03-26 06:42] LABS: ASPARTATE AMINO TRANSFERASE 178 U/L (10-37)
[2019-03-26] MEDS: lactulose 20gm/30ml cup PO SCH (07:06)
[2019-03-26] MEDS: predniSONE 20 mg tablet PO SCH (07:07)
[2019-03-26] MEDS: carBAMazepine 100mg chewable tablet PO SCH (07:07)
[2019-03-26] MEDS: propranolol 10mg tablet PO SCH (07:07)
[2019-03-26] MEDS: pantoprazole 40mg Tablet.DR PO SCH (07:07)
[2019-03-26] MEDS ORDERED: naltrexone 50mg tablet PO SCH (08:00)
[2019-03-26 08:20] LABS: ANISOCYTOSIS 2+; MICROCYTOSIS 1+; PLATELET ESTIMATE DECREASED; POLYCHROMASIA 1+; TARGET CELLS 2+; TOTAL CELLS COUNTED 100
[2019-03-26] MEDS ORDERED: PROP10TA10 PO (10:07)
[2019-03-26] MEDS ORDERED: PRED20TA PO (10:07)
[2019-03-26] MEDS ORDERED: LACT10SO32 PO (10:07)
[2019-03-26] MEDS ORDERED: PANT40TA4 PO (10:07)
--- NOTE | 2019-03-26 11:03 | NUR ---
Stable for discharge per MD, discharge instructions reviewed with patient and all questions answered, new prescriptions called to [facility] pharmacy, Tele monitor and PIV discontinued, left the unit by wheelchair with nurses aide at 1044.
== END 2019-03-26 10:45 | disposition home or self-care (01) | DRG 280 ==
LOC: ER 12:29 → ED HOLD 20:01 → PCU 3S 03-24 02:30
PROVIDERS: ADMIT Internal Medicine; ATTEND Hospitalist
DX: K70.10 Alcoholic hepatitis without ascites (principal); K70.30 Alcoholic cirrhosis of liver without ascites; D69.59 Other secondary thrombocytopenia; E87.1 Hypo-osmolality and hyponatremia; E87.6 Hypokalemia; F10.230 Alcohol dependence with withdrawal, uncomplicated; F12.90 Cannabis use, unspecified, uncomplicated; F41.9 Anxiety disorder, unspecified; I10 Essential (primary) hypertension; Z87.891 Personal history of nicotine dependence
CPT/HCPCS: 36415; 74181; 76700; 80053; 80320; 81001; 82140; 83690; 83735; 84100; 84484; 85025; 85610; 85730; 87081; 87088; 93005; 96374; 96375; 99285; G0378; J2060; J2405; J3411; J3475; J3480; J7512

== ENCOUNTER 2019-08-02 08:23 | Inpatient (IN) | payer MEDICAID ==
[~2019-08-02] VITALS: Ht 177.8 cm; Wt 100.0 kg
[~2019-08-02 08:23] MED LIST changes: +CARB200T PO; -CARB200T40 PO; +LACT10SO32 PO; -METO-384 PO; +PANT40TA4 PO; +PRED20TA PO; +PROP10TA10 PO
[2019-08-02] MEDS ORDERED: pantoprazole 40 MG vial IV ONE (09:15)
[2019-08-02 09:51] LABS: BASOPHILS % (AUTO) 0.4 % (0-1); EOSINOPHILS % (AUTO) 1.1 % (0-6); HEMATOCRIT 43.5 % (42.0-52.0); HEMOGLOBIN 14.9 g/dl (14.0-17.9); LYMPHOCYTES # (AUTO) 1.4 X10'3 (1.1-4.8); LYMPHOCYTES % (AUTO) 31.3 % (21-51); MEAN CORPUSCULAR HEMOGLOBIN 29.4 PG (27.0-31.0); MEAN CORPUSCULAR HGB CONC 34.3 g/dL (33.0-36.5); MEAN CORPUSCULAR VOLUME 85.7 FL (78-98); MEAN PLATELET VOLUME 7.1 FL (7.4-10.4); MONOCYTES # (AUTO) 0.3 X10'3 (0-0.9); MONOCYTES % (AUTO) 5.6 % (2-12); NEUTROPHILS # (AUTO) 2.7 X10'3 (1.8-7.7); NEUTROPHILS % (AUTO) 61.6 % (42-75); PLATELET COUNT 105 X10'3 (140-440); RED BLOOD COUNT 5.07 X10'6 (4.70-6.10); RED CELL DISTRIBUTION WIDTH 14.5 % (11.5-14.5); WHITE BLOOD COUNT 4.4 X10'3 (4.5-11.0)
[2019-08-02 10:03] LABS: PARTIAL THROMBOPLASTIN TIME 28 SECONDS (22-32)
[2019-08-02 10:09] LABS: ALANINE AMINOTRANSFERASE 399 U/L (12-78); ALBUMIN 2.8 G/DL (3.4-5.0); ALKALINE PHOSPHATASE 213 IU/L (46-116); ANION GAP 12 (8-16); ASPARTATE AMINO TRANSFERASE 658 U/L (10-37); BILIRUBIN,TOTAL 2.6 MG/DL (0.1-1.0); BLOOD UREA NITROGEN 9 MG/DL (7-18); BUN/CREATININE RATIO 9.9 (5.4-32.0); CALCIUM 7.7 MG/DL (8.5-10.1); CHLORIDE 94 MMOL/L (99-107); CREATININE 0.91 MG/DL (0.60-1.10); GLUCOSE 155 MG/DL (70-104); SODIUM 135 MMOL/L (135-145); TOTAL CARBON DIOXIDE 29.1 MMOL/L (24-32); TOTAL PROTEIN 5.6 G/DL (6.4-8.2); eGFR > 90 ML/MIN
[2019-08-02 10:13] LABS: POTASSIUM 2.4 MMOL/L (3.5-5.1)
[2019-08-02] MEDS ORDERED: normal saline 1000ML IV soln IVB ONE (10:15)
[2019-08-02] MEDS ORDERED: potassium Cl 10 mEq/100mL bag IV ONE (10:15)
--- NOTE | 2019-08-02 10:16 | NUR ---
notified monroe howard regarding pt k+ 2.4,new orders for potassium chloride 10 meq onces iv also order 1 n.s liter of ivb.
[2019-08-02] MEDS: pantoprazole 40MG/NS 100ML BAG 100 ML IV SCH ×3 (11:01→20:15)
[2019-08-02 11:16] LABS: CLARITY,URINE CLEAR (Clear); GLUCOSE, URINE NEGATIVE (Neg); KETONES,URINE 15 mg/dl (Neg); LEUKOCYTE ESTERASE ,URINE NEGATIVE (Neg); NITRITES, URINE NEGATIVE (Neg); OCCULT BLOOD,URINE NEGATIVE (Neg); PH,URINE 7.5 (4.8-8.0); PROTEIN,URINE NEGATIVE (Neg)
[2019-08-02 11:25] LABS: COLOR,URINE DARK YELLOW (Yellow); UA COLLECTION TYPE VOIDED
[2019-08-02] MEDS ORDERED: potassium Cl 20 mEq SR tablet PO PRN ×2 (11:40)
[2019-08-02] MEDS ORDERED: potassium CL 10mEq/100ml bag 100 ML IV PRN (11:40)
[2019-08-02] MEDS ORDERED: octreotide inj. 1,250 MCG in normal saline 250ml IV soln 243.75 ML IV SCH (11:40)
[2019-08-02] MEDS ORDERED: mag hydrox/Alum hydrox/simeth 30ml oral suspension PO PRN (11:40)
[2019-08-02] MEDS ORDERED: magnesium 2GM in 50ml NS 50 ML IV PRN (11:40)
[2019-08-02] MEDS ORDERED: magnesium 4gm in 100ml NS 100 ML IV PRN (11:40)
[2019-08-02] MEDS ORDERED: ondansetron/PF 4mg/2ml inj IV PRN (11:40)
[2019-08-02] MEDS ORDERED: ipratropium/albuterol 3ml nebule NEB PRN (11:40)
[2019-08-02] MEDS ORDERED: ERGO500054 PO (12:09)
[2019-08-02] MEDS: normal saline 1000ml 1,000 ML IV SCH ×2 (12:11→16:50)
[2019-08-02] MEDS ORDERED: PROP10TA10 PO (12:16)
[2019-08-02 12:40] LABS: HEMATOCRIT 42.2 % (42.0-52.0); HEMOGLOBIN 14.6 g/dl (14.0-17.9); MEAN CORPUSCULAR HEMOGLOBIN 29.4 PG (27.0-31.0); MEAN CORPUSCULAR HGB CONC 34.6 g/dL (33.0-36.5); MEAN PLATELET VOLUME 7.4 FL (7.4-10.4); PLATELET COUNT 103 X10'3 (140-440); RED BLOOD COUNT 4.96 X10'6 (4.70-6.10); RED CELL DISTRIBUTION WIDTH 14.6 % (11.5-14.5)
[2019-08-02] MEDS: propranolol 10mg tablet PO SCH ×2 (13:00→20:12)
[2019-08-02 13:57] LABS: OCCULT BLOOD STOOL POSITIVE (Neg)
[2019-08-02] MEDS ORDERED: LORazepam 2 mg/ml vial IV ONE (15:15)
[2019-08-02] MEDS: potassium CL 10mEq/100ml bag 100 ML IV PRN (15:58)
[2019-08-02] MEDS ORDERED: pantoprazole 40MG/NS 100ML BAG 100 ML IV SCH (16:00)
[2019-08-02 18:00] VITALS: BP 152/88
--- NOTE | 2019-08-02 18:33 | NUR ---
Problems reprioritized. Patient report given, questions answered & plan of care reviewed with DONNY Mary.
[2019-08-02] MEDS: LORazepam 2 mg/ml vial IV PRN (19:56)
[2019-08-02] MEDS: K and/or MAG REPLACEMENT MC SCH (20:00)
--- NOTE | 2019-08-02 20:02 | NUR ---
pt is having nausea with vomiting, <100ml black liquid. pt is NPO for EGD in am. also rec'ing Protonix IV and H/H stable.
[2019-08-02 20:15] LABS: HEMATOCRIT 42.2 % (42.0-52.0); HEMOGLOBIN 14.6 g/dl (14.0-17.9); MEAN CORPUSCULAR HEMOGLOBIN 29.6 PG (27.0-31.0); MEAN CORPUSCULAR HGB CONC 34.7 g/dL (33.0-36.5); MEAN CORPUSCULAR VOLUME 85.2 FL (78-98); MEAN PLATELET VOLUME 7.5 FL (7.4-10.4); PLATELET COUNT 89 X10'3 (140-440); RED BLOOD COUNT 4.94 X10'6 (4.70-6.10); RED CELL DISTRIBUTION WIDTH 14.9 % (11.5-14.5); WHITE BLOOD COUNT 5.2 X10'3 (4.5-11.0)
[2019-08-02 22:00] VITALS: BP 165/85
[2019-08-03] VITALS (14 sets, daily range): BP systolic 125–162; BP diastolic 70–102
[2019-08-03] MEDS: pantoprazole 40MG/NS 100ML BAG 100 ML IV SCH ×5 (00:18→20:57)
[2019-08-03] MEDS: LORazepam 2 mg/ml vial IV PRN (03:53)
[2019-08-03] MEDS: normal saline 1000ml 1,000 ML IV SCH ×2 (03:56→17:36)
--- NOTE | 2019-08-03 06:30 | NUR ---
Patient in room ORTHO 4014. I have received report from DONNY Tijerina and had the opportunity to ask questions and assume patient care.
[2019-08-03 07:19] LABS: ALANINE AMINOTRANSFERASE 277 U/L (12-78); ALBUMIN 2.9 G/DL (3.4-5.0); ALBUMIN/GLOBULIN RATIO 0.9 (1.1-1.5); ALKALINE PHOSPHATASE 190 IU/L (46-116); AMYLASE 51 U/L (25-115); ANION GAP 9 (8-16); ASPARTATE AMINO TRANSFERASE 218 U/L (10-37); BASOPHILS % (AUTO) 0.3 % (0-1); BILIRUBIN,TOTAL 2.9 MG/DL (0.1-1.0); BLOOD UREA NITROGEN 4 MG/DL (7-18); BUN/CREATININE RATIO 4.5 (5.4-32.0); CALCIUM 8.1 MG/DL (8.5-10.1); CHLORIDE 100 MMOL/L (99-107); CREATININE 0.88 MG/DL (0.60-1.10); EOSINOPHILS % (AUTO) 0.5 % (0-6); GLUCOSE 149 MG/DL (70-104); HEMATOCRIT 42.9 % (42.0-52.0); HEMOGLOBIN 14.7 g/dl (14.0-17.9); LYMPHOCYTES # (AUTO) 2.2 X10'3 (1.1-4.8); LYMPHOCYTES % (AUTO) 37.1 % (21-51); MAGNESIUM 1.5 MG/DL (1.5-2.4); MEAN CORPUSCULAR HEMOGLOBIN 29.8 PG (27.0-31.0); MEAN CORPUSCULAR HGB CONC 34.4 g/dL (33.0-36.5); MEAN CORPUSCULAR VOLUME 86.7 FL (78-98); MEAN PLATELET VOLUME 7.9 FL (7.4-10.4); MONOCYTES # (AUTO) 0.3 X10'3 (0-0.9); MONOCYTES % (AUTO) 4.4 % (2-12); NEUTROPHILS # (AUTO) 3.5 X10'3 (1.8-7.7); NEUTROPHILS % (AUTO) 57.7 % (42-75); PHOSPHORUS 2.1 MG/DL (2.3-4.5); PLATELET COUNT 99 X10'3 (140-440); POTASSIUM 3.2 MMOL/L (3.5-5.1); RED BLOOD COUNT 4.95 X10'6 (4.70-6.10); RED CELL DISTRIBUTION WIDTH 14.7 % (11.5-14.5); SODIUM 137 MMOL/L (135-145); eGFR > 90 ML/MIN
[2019-08-03] MEDS: propranolol 10mg tablet PO SCH ×3 (07:41→20:48)
[2019-08-03] MEDS: potassium CL 10mEq/100ml bag 100 ML IV PRN ×4 (07:58→20:50)
[2019-08-03] MEDS: K and/or MAG REPLACEMENT MC SCH ×2 (07:59→20:58)
[2019-08-03 11:36] LABS: HEMATOCRIT 43.3 % (42.0-52.0); HEMOGLOBIN 14.8 g/dl (14.0-17.9); MEAN CORPUSCULAR HEMOGLOBIN 29.6 PG (27.0-31.0); MEAN CORPUSCULAR HGB CONC 34.2 g/dL (33.0-36.5); MEAN CORPUSCULAR VOLUME 86.6 FL (78-98); MEAN PLATELET VOLUME 7.9 FL (7.4-10.4); PLATELET COUNT 96 X10'3 (140-440); RED BLOOD COUNT 5.01 X10'6 (4.70-6.10); RED CELL DISTRIBUTION WIDTH 14.7 % (11.5-14.5); WHITE BLOOD COUNT 4.5 X10'3 (4.5-11.0)
--- NOTE | 2019-08-03 12:30 | NUR ---
Pt to GI Lab for EGD via w/c.
[2019-08-03] MEDS ORDERED: fentaNYL/PF 50MCG/1 ML 2ML syringe ONE (12:49)
[2019-08-03] MEDS ORDERED: LIDOcaine Viscous 15ml cup ONE (12:49)
[2019-08-03] MEDS ORDERED: MIDAZolam 5mg/5ml vial ONE (12:49)
--- NOTE | 2019-08-03 14:15 | NUR ---
Pt returned from EGD. Awake and alert. VS taken. Stable at this time. TC placed to Dr. Marquez. PER EGD report from Dr. Caceres, order to DC Sandostatin. Order entered. TC to Dr. Marquez to discuss EGD report. Received order from Dr. Marquez to start patient on Clear Liquid Diet for dinner tonight. Order entered. Will continue to monitor.
[2019-08-03 19:39] LABS: HEMATOCRIT 41.5 % (42.0-52.0); HEMOGLOBIN 14.2 g/dl (14.0-17.9); MEAN CORPUSCULAR HEMOGLOBIN 29.9 PG (27.0-31.0); MEAN CORPUSCULAR HGB CONC 34.3 g/dL (33.0-36.5); MEAN CORPUSCULAR VOLUME 87.2 FL (78-98); MEAN PLATELET VOLUME 7.6 FL (7.4-10.4); PLATELET COUNT 85 X10'3 (140-440); RED BLOOD COUNT 4.76 X10'6 (4.70-6.10); RED CELL DISTRIBUTION WIDTH 14.8 % (11.5-14.5); WHITE BLOOD COUNT 5.5 X10'3 (4.5-11.0)
[2019-08-04] MEDS: pantoprazole 40MG/NS 100ML BAG 100 ML IV SCH ×2 (01:28→06:12)
[2019-08-04] MEDS: normal saline 1000ml 1,000 ML IV SCH (03:36)
[2019-08-04 06:00] VITALS: BP 149/104
[2019-08-04] MEDS: LORazepam 2 mg/ml vial IV PRN ×2 (06:11→08:23)
--- NOTE | 2019-08-04 06:40 | NUR ---
REPORT GIVEN TO DONNY QUIJANO.
[2019-08-04] MEDS: K and/or MAG REPLACEMENT MC SCH (08:00)
[2019-08-04] MEDS: propranolol 10mg tablet PO SCH (08:01)
[2019-08-04 08:20] LABS: HEMATOCRIT 41.9 % (42.0-52.0); HEMOGLOBIN 14.6 g/dl (14.0-17.9); MEAN CORPUSCULAR HGB CONC 34.8 g/dL (33.0-36.5); MEAN CORPUSCULAR VOLUME 86.4 FL (78-98); MEAN PLATELET VOLUME 7.8 FL (7.4-10.4); PLATELET COUNT 100 X10'3 (140-440); RED BLOOD COUNT 4.85 X10'6 (4.70-6.10); RED CELL DISTRIBUTION WIDTH 15.2 % (11.5-14.5); WHITE BLOOD COUNT 5.9 X10'3 (4.5-11.0)
[2019-08-04 08:40] LABS: ALANINE AMINOTRANSFERASE 217 U/L (12-78); ALBUMIN 2.9 G/DL (3.4-5.0); ALBUMIN/GLOBULIN RATIO 0.9 (1.1-1.5); ALKALINE PHOSPHATASE 185 IU/L (46-116); AMYLASE 79 U/L (25-115); ANION GAP 7 (8-16); ASPARTATE AMINO TRANSFERASE 185 U/L (10-37); BILIRUBIN,TOTAL 2.7 MG/DL (0.1-1.0); BLOOD UREA NITROGEN 4 MG/DL (7-18); BUN/CREATININE RATIO 5.2 (5.4-32.0); CALCIUM 8.3 MG/DL (8.5-10.1); CHLORIDE 104 MMOL/L (99-107); CREATININE 0.77 MG/DL (0.60-1.10); GLUCOSE 116 MG/DL (70-104); MAGNESIUM 1.4 MG/DL (1.5-2.4); PHOSPHORUS 2.1 MG/DL (2.3-4.5); POTASSIUM 3.1 MMOL/L (3.5-5.1); SODIUM 137 MMOL/L (135-145); TOTAL CARBON DIOXIDE 25.7 MMOL/L (24-32); TOTAL PROTEIN 6.2 G/DL (6.4-8.2); eGFR > 90 ML/MIN
[2019-08-04 10:00] VITALS: BP 143/100
[2019-08-04] MEDS ORDERED: magnesium Cl slow-release 64mg tablet PO PRN (10:25)
[2019-08-04] MEDS ORDERED: magnesium 4gm in 100ml NS 100 ML IV PRN (10:25)
--- NOTE | 2019-08-04 11:44 | NUR ---
PAGER ID: [phone] MESSAGE: [phone] Blakely Bill- patient is very eager for discharge, can you please put in D/C orders? thank you Kate [phone]
[2019-08-04] MEDS ORDERED: PANT-47 PO (11:50)
--- NOTE | 2019-08-04 12:49 | NUR ---
Patient was eager for discharge. Teaching provided to patient. Prescription e-scripted to pharmacy. PIV removed, canula intact. Belongings gathered and sent home with patient.
[2019-08-04] MEDS ORDERED: LORazepam 1 MG tablet PO PRN (19:30)
[2019-08-04] MEDS ORDERED: LORazepam 2 mg/ml vial IV PRN (19:30)
[2019-08-06] MEDS ORDERED: LORazepam 2 mg/ml vial IV PRN (19:30)
[2019-08-06] MEDS ORDERED: LORazepam 1 MG tablet PO PRN (19:30)
== END 2019-08-04 12:10 | disposition home or self-care (01) | DRG 241 ==
LOC: ER 08:23 → ED HOLD 11:36 → ORTHO 4S 16:59
PROVIDERS: ADMIT Family Medicine; ATTEND Family Medicine
PROC: 0DB58ZX Excision of Esophagus, Via Natural or Artificial Opening Endoscopic, Diagnostic (ICD-10-PCS; principal; 2019-08-03)
DX: K27.4 Chronic or unspecified peptic ulcer, site unspecified, with hemorrhage (principal); D69.59 Other secondary thrombocytopenia; K74.60 Unspecified cirrhosis of liver; E87.6 Hypokalemia; I10 Essential (primary) hypertension; F10.20 Alcohol dependence, uncomplicated; K29.70 Gastritis, unspecified, without bleeding; K22.10 Ulcer of esophagus without bleeding; Z87.891 Personal history of nicotine dependence
CPT/HCPCS: 36415; 43239; 80053; 81003; 82140; 82150; 82272; 82948; 83735; 84100; 84132; 85025; 85027; 85610; 85730; 86885; 86900; 86901; 87081; 93005; 94760; 97110; 97161; 97530; 99152; 99285; A4620; C9113; G0378; J2060; J2250; J2354; J2405; J3010; J3480; J7030; J7040; J7050

== ENCOUNTER 2019-11-19 16:47 | Emergency (ER) | payer MEDICAID ==
[~2019-11-19] VITALS: Ht 177.8 cm; Wt 100.0 kg
[~2019-11-19 16:47] MED LIST changes: -CARB200T PO; -LACT10SO32 PO; -NALT50TA PO; +PANT-47 PO; -PANT40TA4 PO; -PRED20TA PO
[2019-11-19] MEDS ORDERED: PANT-47 PO (17:53)
[2019-11-19] MEDS ORDERED: ONDA8TAB6 PO (18:05)
[2019-11-19] MEDS ORDERED: CHLO25CA10 PO (18:05)
[2019-11-19 18:37] VITALS: BP 140/102
== END 2019-11-19 18:20 | disposition home or self-care (01) ==
LOC: ER 16:48
DX: F10.239 Alcohol dependence with withdrawal, unspecified (principal); R11.10 Vomiting, unspecified; I10 Essential (primary) hypertension; F12.90 Cannabis use, unspecified, uncomplicated; Z98.890 Other specified postprocedural states; Z72.89 Other problems related to lifestyle; Z79.899 Other long term (current) drug therapy; Y90.9 Presence of alcohol in blood, level not specified
CPT/HCPCS: 99284

== ENCOUNTER 2021-03-29 10:46 | Day surgery (SDC) | payer MEDICAID ==
[2021-03-27 11:32] LABS: BASOPHILS % (AUTO) 0.2 % (0-1); EOSINOPHILS % (AUTO) 0.6 % (0-6); LYMPHOCYTES # (AUTO) 1.8 X10'3 (1.1-4.8); LYMPHOCYTES % (AUTO) 24.7 % (21-51); MEAN CORPUSCULAR HEMOGLOBIN 30.3 PG (27.0-31.0); MEAN CORPUSCULAR HGB CONC 33.8 g/dL (33.0-36.5); MEAN CORPUSCULAR VOLUME 89.7 FL (78-98); MEAN PLATELET VOLUME 7.8 FL (7.4-10.4); MONOCYTES # (AUTO) 0.4 X10'3 (0-0.9); MONOCYTES % (AUTO) 5.3 % (2-12); NEUTROPHILS # (AUTO) 5.1 X10'3 (1.8-7.7); NEUTROPHILS % (AUTO) 69.2 % (42-75); PRE OP HEMATOCRIT 45.1 % (42.0-52.0); PRE OP HEMOGLOBIN 15.2 g/dL (14.0-17.9); PRE OP PLATELET COUNT 224 X10'3 (140-440); RED BLOOD COUNT 5.03 X10'6 (4.70-6.10); RED CELL DISTRIBUTION WIDTH 13.3 % (11.5-14.5)
[2021-03-27 11:52] LABS: ALBUMIN 3.9 G/DL (3.4-5.0); ALBUMIN/GLOBULIN RATIO 1.2 (1.1-1.5); ALKALINE PHOSPHATASE 85 IU/L (46-116); BLOOD UREA NITROGEN 20 MG/DL (7-18); BUN/CREATININE RATIO 20.2 (5.4-32.0); CALCIUM 8.9 MG/DL (8.5-10.1); CHLORIDE 106 MMOL/L (99-107); CREATININE 0.99 MG/DL (0.60-1.10); PRE OP ALT 28 U/L (30-65); PRE OP ANION GAP 6 (8-16); PRE OP AST 20 U/L (10-37); PRE OP BILIRUB, TOTAL 0.4 MG/DL (0.0-1.0); PRE OP GLUCOSE 102 MG/DL (70-104); PRE OP POTASSIUM 4.7 MMOL/L (3.4-5.1); PRE OP SODIUM 143 MMOL/L (135-145); TOTAL CARBON DIOXIDE 30.7 MMOL/L (24-32); TOTAL PROTEIN 7.1 G/DL (6.4-8.2); eGFR 88 ML/MIN
[~2021-03-29] VITALS: Ht 177.8 cm; Wt 82.4 kg
[2021-03-29] VITALS (18 sets, daily range): BP systolic 97–119; BP diastolic 59–71
[~2021-03-29 10:46] MED LIST changes: +CHOL20002 PO; +HYDR-3973 PO; +MAGN400C PO; +NALT50TA PO; +OMEG-79 PO; -PROP10TA10 PO; +albuterol 2.5 MG/3 ML nebule NEB ONE; +famotidine 20mg tablet PO ONE; +ringers solution, lacted 1,000 ML IV SCH; +sevoflurane 250ml liquid IH ONE
[2021-03-29] MEDS ORDERED: ceFAZolin 2gm in dextrose, iso 50 ML IV ONE (11:10)
[2021-03-29] MEDS ORDERED: BUPIVAcaine/PF 2.5 mg/ml (0.25%) 30ml vial ONE (12:37)
[2021-03-29] MEDS ORDERED: fentaNYL/PF 50MCG/1 ML 2ML syringe ONE (13:07)
[2021-03-29] MEDS ORDERED: LIDOcaine 2% (20mg/ml) 5ml vial ONE (13:43)
[2021-03-29] MEDS ORDERED: propofol inj 20 ML IV ONE ×2 (13:43)
[2021-03-29] MEDS ORDERED: ondansetron/PF 4mg/2ml inj ONE (13:43)
[2021-03-29] MEDS ORDERED: ROPIVAcaine 0.5% (5mg/ml) 30ml vial ONE (13:43)
[2021-03-29] MEDS ORDERED: acetaminophen 1,000mg/100ml IV 100 ML IV ONE (13:55)
[2021-03-29] MEDS ORDERED: labetalol 20mg/4ml (5mg/ml) syringe IV PRN (14:10)
[2021-03-29] MEDS ORDERED: fentaNYL/PF 50MCG/1 ML 2ML syringe IV PRN ×2 (14:10)
[2021-03-29] MEDS ORDERED: hydrALAZINE 20mg/ml inj. IV PRN (14:10)
[2021-03-29] MEDS ORDERED: ROPIVAcaine 0.2% (10 MG/5 ML) BOLUS INJECTION INTERSCALE PRN (14:10)
[2021-03-29] MEDS ORDERED: morphine 4 MG/ML inj SYRINge IV PRN (14:10)
[2021-03-29] MEDS ORDERED: ROPIVAcaine 0.2%/PF PUMP/bolus 545 ML INTERSCALE SCH (14:10)
[2021-03-29] MEDS ORDERED: ringers solution, lacted 1,000 ML IV SCH (14:10)
[2021-03-29] MEDS ORDERED: morphine 2 MG/ML inj. syringe IV PRN (14:10)
[2021-03-29] MEDS ORDERED: ondansetron/PF 4mg/2ml inj IV PRN (14:10)
--- NOTE | 2021-03-29 14:53 | NUR ---
Received from OR via [facility] IN STABLE CONDITION , accompanied by Anesthesiologist and CREELER report given by CREELER AND Anesthesiolgist. Addendum: 03/29/21 at 1733 by Jolynn Owen RN Amended: Links added.
[2021-03-29] MEDS ORDERED: HYDROcodone/acetaminophen 10/325mg tab PO PRN (15:55)
--- NOTE | 2021-03-29 18:03 | NUR ---
PATIENT DISCHARGED FROM PACU IN STABLE CONDITION AFTER WRITTEN AND VERBAL INSTRUCTIONS GIVEN. PATIENT GAVE A VERBAL UNDERSTANDING OF INSTRUCTIONS GIVEN. PATIENT LEFT FACILITY VIA WHEELCHAIR WITH RN. Addendum: 03/29/21 at 1825 by Jolynn Owen RN Amended: Links added.
== END 2021-03-29 18:03 | disposition home or self-care (01) ==
LOC: PAS 10:46
PROVIDERS: ATTEND Orthopaedic Surgery
DX: S43.431A Superior glenoid labrum lesion of right shoulder, initial encounter (principal); G89.18 Other acute postprocedural pain; M19.112 Post-traumatic osteoarthritis, left shoulder; I10 Essential (primary) hypertension; F17.210 Nicotine dependence, cigarettes, uncomplicated; Z98.890 Other specified postprocedural states; Z79.899 Other long term (current) drug therapy; Z72.89 Other problems related to lifestyle; Z96.619 Presence of unspecified artificial shoulder joint; Z87.19 Personal history of other diseases of the digestive system; X58.XXXA Exposure to other specified factors, initial encounter; Y93.89 Activity, other specified; Y92.89 Other specified places as the place of occurrence of the external cause; Y99.8 Other external cause status
CPT/HCPCS: 29806; 36415; 64415; 76942; 80053; 82948; 85025; 93005; C1713; J0131; J2405; J2704; J2795; J3010; J3490; J7120; Z7506; Z7508; Z7512; A4565; A4618; A6449; A7000

== ENCOUNTER 2022-05-25 15:12 | Emergency (ER) | payer MEDICAID ==
[~2022-05-25] VITALS: Ht 177.8 cm; Wt 77.0 kg
[~2022-05-25 15:12] MED LIST changes: -albuterol 2.5 MG/3 ML nebule NEB ONE; -famotidine 20mg tablet PO ONE; -ringers solution, lacted 1,000 ML IV SCH; -sevoflurane 250ml liquid IH ONE
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
[2022-05-25] MEDS ORDERED: TETanus/Pertussis (Acell)/Diphther VAC/PF (Tdap-Adult) 0.5ml syringe IMVAC ONE (19:25)
[2022-05-25] MEDS ORDERED: AMOX-117 PO (19:56)
--- NOTE | 2022-05-25 20:00 | NUR ---
Kasandra richardson in ED - 05/25/22 at 2021 by JENNIFER RN NOTIFIED OF GENERAL ASSESSENT NEEDED.
--- NOTE | 2022-05-25 20:00 | NUR ---
RN NOTIFIED OF GENERAL ASSESSMENT NEEDED.
[2022-05-25 20:10] VITALS: BP 132/82
== END 2022-05-25 20:12 | disposition home or self-care (01) ==
LOC: EEVIPCON 15:12 → ER 15:12
DX: S02.85XA Fracture of orbit, unspecified, initial encounter for closed fracture (principal); S09.90XA Unspecified injury of head, initial encounter; I10 Essential (primary) hypertension; F12.90 Cannabis use, unspecified, uncomplicated; Y08.89XA Assault by other specified means, initial encounter; Y93.89 Activity, other specified; Y92.89 Other specified places as the place of occurrence of the external cause; Y99.8 Other external cause status
CPT/HCPCS: 70450; 70480; 90471; 90715; 99285

== ENCOUNTER 2024-05-25 14:42 | Emergency (ER) | payer MEDICAID ==
[~2024-05-25] VITALS: Ht 175.3 cm; Wt 75.0 kg
[~2024-05-25 14:42] MED LIST changes: -NALT50TA PO; +NALT50TA5 PO
[2024-05-25 17:42] VITALS: BP 128/68; PULSE 85; RESP 16; TEMP 98.6; O2SAT 99
== END 2024-05-25 17:51 | disposition home or self-care (01) ==
LOC: ER 14:43
DX: M25.531 Pain in right wrist (principal); I10 Essential (primary) hypertension; F10.90 Alcohol use, unspecified, uncomplicated; F12.90 Cannabis use, unspecified, uncomplicated; Z98.890 Other specified postprocedural states; Y90.9 Presence of alcohol in blood, level not specified
CPT/HCPCS: 29125; 73110; 73130; 99284; A6449